=== PATIENT | female | born 1955 | race Caucasian/White ===

== ENCOUNTER 2017-08-29 16:57 | Emergency (ER) | payer OTHER ==
[~2017-08-29] VITALS: Ht 162.6 cm; Wt 77.1 kg
[2017-08-29 17:13] VITALS: BP 188/79
[2017-08-29] MEDS ORDERED: HYDROcodone/APAP 7.5/325MG 1 TAB TABLET PO ONE (17:30)
--- NOTE | 2017-08-29 17:37 | PHYS DOC ---
Adult General Chief Complaint Chief Complaint: MECHANICAL FALL HPI HPI Patient is a 61 year old female who presents with complaint of left knee pain. Patient states that she suffered a fall shortly prior to arrival. The patient states that she was holding items in her hand when she was trying to walk from the driveway to the front door of her home. Patient states that she stumbled and fell, falling on to her left knee first, then falling onto her hands and the left side of her face. Patient states that she broke most of her fall with her knee and hands. Patient denies losing consciousness as a result of the fall. Patient states that she is having moderate to severe pain in the left knee which she rates as 6 out of 10 currently. Patient states that she is having difficulty extending the left knee due to pain and is unable to bend as there has been swelling developing in the knee. Patient denies any loss of feeling in her left foot. Patient states that she takes aspirin but is not on any other blood thinners. Patient states that the pain is located along the anterior portion of her knee both above and below and states that she is also having pain radiating towards the lateral posterior side. Review of Systems Review of Systems Constitutional: Denies fever or chills [] Eyes: Denies change in visual acuity, redness, or eye pain [] HENT: Denies nasal congestion or sore throat [] Respiratory: Denies cough or shortness of breath [] Cardiovascular: No additional information not addressed in HPI [] GI: Denies abdominal pain, nausea, vomiting, bloody stools or diarrhea [] : Denies dysuria or hematuria [] Musculoskeletal: Left knee pain and swelling[] Integument: Abrasion to chin and bilateral hands[] Neurologic: Denies headache, focal weakness or sensory changes [] Endocrine: Denies polyuria or polydipsia [] All other systems were reviewed and found to be within normal limits, except as documented in this note. Current Medications Current Medications Current Medications Medications (Trade) Dose Ordered Sig/Zhane Start Time Stop Time Status Last Admin Dose Admin Acetaminophen/ Hydrocodone Bitart (Lortab 7.5/325) 1 tab 1X ONCE 08/29/17 17:30 08/29/17 17:43 DC 08/29/17 17:39 1 TAB Allergies Allergies Allergies Coded Allergies Type Severity Reaction Last Updated Verified Iodinated Contrast- Oral and IV Dye Allergy Unknown 08/29/17 Yes Penicillins Allergy Unknown 08/29/17 Yes [id number]-Cuu Reductase Inhibitor Allergy Unknown Increased liver enzymes. 08/29/17 Yes fish oil Allergy Unknown Itching,swelling. 08/29/17 Yes Physical Exam Physical Exam Constitutional: Alert, afebrile, appears in mild to moderate discomfort. [] HENT: Normocephalic, 1 cm abrasion to chin, bilateral external ears normal, oropharynx moist, no oral exudates, nose normal. [] Eyes: PERRLA, EOMI, conjunctiva normal, no discharge. [] Neck: Normal range of motion, no tenderness, supple, no stridor. [] Cardiovascular:Heart rate regular rhythm, no murmur [] Lungs & Thorax: Bilateral breath sounds clear to auscultation [] Abdomen: Bowel sounds normal, soft, no tenderness, no masses, no pulsatile masses. [] Skin: Warm, dry, small abrasions to palms of bilateral hands. [] Back: No tenderness, no CVA tenderness. [] Extremities: Anterior swelling and ecchymosis along joint space of left knee, left knee is held slightly flexed, patient unable to fully extend or fully flex the left knee, neurovascularly intact distal to site of injury, patellar and anterior tibial plateau tenderness to palpation. [] Neurologic: Alert and oriented X 3, normal motor function, normal sensory function, no focal deficits noted. [] Current Patient Data Vital Signs Vital Signs Date Time Temp Pulse Resp B/P (MAP) Pulse Ox O2 Delivery O2 Flow Rate FiO2 08/29/17 17:39 15 97 Room Air 08/29/17 17:13 97.5 78 188/79 (115) 97.5 EKG EKG Not performed[] Radiology/Procedures Radiology/Procedures 3 view left knee x-ray interpreted by me: No fractures, normal alignment, significant periarticular soft tissue swelling.[] Course & Med Decision Making Course & Med Decision Making Pertinent Labs and Imaging studies reviewed. (See chart for details) The patient's knee x-ray was negative for acute fracture. Patient was treated with hydrocodone for pain in the emergency department and an ice pack was applied to the left knee. After speaking with the patient regarding inpatient versus outpatient treatment, the patient states that she would like to go home at this time. An Naseem wrap was applied to the left knee. Recommended use of cane or a roller walker at home with weightbearing as tolerated to assist with ambulation and patient was counseled on RICE therapy. Advised follow-up with primary doctor in 5-7 days for reevaluation. Recommended return to the emergency department for any worsening symptoms. Patient voiced understanding and in agreement with treatment plan. Dragon Disclaimer Dragon Disclaimer This electronic medical record was generated, in whole or in part, using a voice recognition dictation system. Departure Departure Impression: Primary Impression: Contusion of left knee Additional Impressions: Multiple abrasions Fall from standing Disposition: 01 HOME, SELF-CARE Condition: IMPROVED Referrals: POP ROSA MD (PCP) Patient Instructions: Abrasion, [id number], Contusion, Knee Wraps (Elastic Bandage) and RICE Additional Instructions: Follow-up with your primary doctor in 5-7 days for reevaluation. Return to the emergency department for any worsening symptoms. Scripts Hydrocodone/Apap 5-325 (NORCO 5-325 TABLET) 1 Each Tablet 1-2 TAB PO Q4-6HRS Y for PAIN, #20 TAB Prov: RAVI MAGANA MD 08/29/17 Problem Qualifiers Primary Impression: Contusion of left knee Encounter type: initial encounter Qualified Codes: S80.02XA - Contusion of left knee, initial encounter Additional Impressions: Fall from standing Encounter type: initial encounter Qualified Codes: W19.XXXA - Unspecified fall, initial encounter RAVI MAGANA MD Aug 29, 2017 17:37
[2017-08-29] MEDS ORDERED: HYDR-971 PO (18:33)
--- NOTE | 2017-08-30 08:37 | RAD ---
Left knee, 3 views, 08/29/2017: History: Fall, knee pain There is moderate degenerative change at the patellofemoral articulation. No acute fracture or dislocation is identified. No joint effusion is seen. There is moderate subcutaneous edema, most prominent anteriorly. IMPRESSION: No acute bony abnormality is detected.
== END 2017-08-29 18:41 | disposition home or self-care (01) ==
LOC: ER 16:57
DX: S80.02XA Contusion of left knee, initial encounter (principal); S00.81XA Abrasion of other part of head, initial encounter; S60.512A Abrasion of left hand, initial encounter; S60.511A Abrasion of right hand, initial encounter; Z91.013 Allergy to seafood; Z88.8 Allergy status to other drugs, medicaments and biological substances; Z91.041 Radiographic dye allergy status; Z88.0 Allergy status to penicillin; Z79.82 Long term (current) use of aspirin; W01.0XXA Fall on same level from slipping, tripping and stumbling without subsequent striking against object, initial encounter; Y93.89 Activity, other specified; Y92.009 Unspecified place in unspecified non-institutional (private) residence as the place of occurrence of the external cause; Y99.8 Other external cause status
CPT/HCPCS: 73562; 99284